=== PATIENT | male | born 1970 | race Caucasian/White ===

== ENCOUNTER → 2016-10-31 | Outpatient (CLI) | payer OTHER ==
[2016-10-31 12:02] LABS: BASO % 0.4 %; BASO ABS # 0.02 K/uL (0-0.2); COMPLETE YES; EOS % 0.8 %; HEMATOCRIT 42.2 % (42-52); LYMPH % 19.8 %; LYMPH ABS # 0.99 K/uL (1.2-3.4); MEAN CELL VOLUME 86.3 fL (80-100); MEAN CORPUSCULAR HEMOGLOBIN 29.7 pg (25-34); MEAN CORPUSCULAR HGB CONC 34.4 g/dl (32-36); MEAN PLATELET VOLUME 10.5 fL (7.4-10.4); MONO % 9.2 %; NEUT % 69.8 %; PLATELET COUNT 231 K/uL (130-400); RED BLOOD COUNT 4.89 M/uL (4.7-6.1); WHITE BLOOD COUNT 5.01 K/uL (4.8-10.8)
[2016-10-31 12:12] LABS: ALT/SGPT 37 U/L (12-78); BLOOD UREA NITROGEN 11 mg/dl (7-18); BUN/CREATININE RATIO 11.2 (10-20); CALCIUM 9.6 mg/dl (8.5-10.1); CARBON DIOXIDE 28 mmol/L (21-32); CHLORIDE 104 mmol/L (98-107); CHOLESTEROL 204 mg/dl (0-200); GLUCOSE 86 mg/dl (70-99); POTASSIUM 4.1 mmol/L (3.5-5.1); SODIUM 141 mmol/L (136-145); TRIGLYCERIDES 57 mg/dl (0-150); VERY LOW DENSITY LIPOPROT CALC 11 mg/dl
[2016-10-31 12:20] LABS: ALB/GLOB RATIO 1.3 (0.9-2); ALKALINE PHOSPHATASE 80 U/L (45-117); AST/SGOT 21 U/L (15-37); CHOLESTEROL/HDL RATIO 3.8; HDL CHOLESTEROL 54 mg/dl; LDL CHOLESTEROL CALCULATED 139 mg/dl; PROSTATE SPECIFIC ANTIGEN 0.618 ng/ml (0.000-4.000)
== END | disposition home or self-care (01) ==
LOC: C.LABBFT 10:23
PROVIDERS: ATTEND Internal Medicine
DX: N40.0 Benign prostatic hyperplasia without lower urinary tract symptoms (principal); R39.11 Hesitancy of micturition; N52.9 Male erectile dysfunction, unspecified; E03.9 Hypothyroidism, unspecified; Z13.6 Encounter for screening for cardiovascular disorders

== ENCOUNTER → 2017-12-17 | Day surgery (SDC) | payer OTHER ==
[2017-12-09 16:43] VITALS: BMI 26.0
[~2017-12-17] VITALS: Ht 177.8 cm; Wt 84.1 kg
[~2017-12-17] MED LIST: ARGI500C PO; ASCO10003 PO; B-CO1CAP3 PO; CYAN1SUB12 PO; GLUC500C4 PO; LIDOCAINE HCL 2% 2 ML VIAL (20MG/ML) ONE; MAGN400T6 PO; MULT-506 PO; MULT-827 PO; NUTR30CA PO; OMEP20TA PO; PROPOFOL IV EMULSION 10 MG/ML 20 ML VIAL ONE; SELE1TAB PO; SODIUM CHLORIDE 0.9% 500ML 500 ML IV ONE; TAMS0.4C38 PO; [UNRECOGNIZED DRUG - CODE] PO; [UNRECOGNIZED DRUG - CODE] PO
[2017-12-17 14:04] VITALS: Ht 177.8 cm; Wt 84.1 kg
--- NOTE | 2017-12-17 14:47 | Endo History and Physical ---
History & Physical Date of Service: December 17, 2017. Chief Complaint: ACID REFLUX Referring Physician: DR LUNA History of Present Illness 47 yo CM who presents for EGD secondary to GERD. Past Surgical History Hx Cardiac Surgery: No Hx Internal Defibrillator: No Hx Pacemaker: No Hx Abdominal Surgery: No Hx of Implantable Prosthesis: No Hx Post-Op Nausea and Vomiting: No Hx Cancer Surgery: No Hx Thoracic Surgery: No Hx Orthopedic: No Hx Urinary Tract Surgery: No Family History None Social History Smoking Status: Never Smoker Hx Substance Use: No Hx Alcohol Use: No Allergies Coded Allergies: No Known Allergies (Unverified , 12/17/17) Current Medications Reported Home Medications Medications Dose Route/Sig Max Daily Dose Days Date Category Selenium 100 Mcg Tab 1 Tab PO DAILY 12/09/17 Reported L-Citrulline (Citrulline (Bulk)) 1 Pow Pow 750 Mg PO DAILY 12/09/17 Reported Vitamin C (Ascorbic Acid) 1,000 Mg Tab 2 Tabs PO DAILY 12/09/17 Reported Glucosamine (Glucosamine Sulfate) 500 Mg Cap 2 Tabs PO DAILY 12/09/17 Reported B Complex (B-Complex Vitamins) 1 Cap Cap 1 Cap PO DAILY 12/09/17 Reported Vitamin D3 Complete (Multiple Vitamins W/ Minerals) 1 Tab Tab 100 Mcg PO DAILY 12/09/17 Reported Vitamin B-12 (Cyanocobalamin) 2,500 Mcg Sub 1 Tab PO DAILY 12/09/17 Reported Flomax (Tamsulosin Hcl) 0.4 Mg Cap 1 Cap PO DAILY 30 12/09/17 Reported Pycnogenol (Nutritional Supplements) 1 Cap Cap 100 Mg PO DAILY 12/09/17 Reported Omeprazole 20 Mg Tab 1 Tab PO DAILY 90 12/09/17 Reported Multivitamin (Multivitamins) Tab 1 Tab PO DAILY 12/09/17 Reported Mag-Ox (Magnesium Oxide) 400 Mg Tab 400 Mg PO DAILY 12/09/17 Reported N-Bnasefwk-280 (Arginine) 500 Mg Cap 6 Tabs PO DAILY 12/09/17 Reported Kelp/Lecithin/B-6 (Deyhfnhuwz-Ymqs-Rizfqzbx-Vineg) 1 Cap Cap 225 Mcg PO DAILY 12/09/17 Reported Vital Signs Weight (Kilograms): 84.09 Height (Feet): 5 Height (Inches): 10 Date Time Temp Pulse Resp B/P (MAP) Pulse Ox O2 Delivery O2 Flow Rate FiO2 12/17/17 14:09 36.8 80 18 126/85 (99) 98 Room Air Physical Exam General Appearance: WD/WN, no apparent distress Respiratory/Chest: Auscultation: breath sounds normal Cardiovascular: Heart Auscultation: RRR Abdomen: Bowel Sounds: normal Inspection & Palpation: soft, non-distended, no tenderness, guarding & rebound Assessment and Plan Assessment: 47 yo CM who presents for EGD secondary to GERD. Plan: Proceed with EGD.
--- NOTE | 2017-12-17 15:13 | GI REPORT ---
Patient Name: North Gutierrez Procedure Date: 12/17/2017 2:50 PM Date of : 1970 Admit Type: Outpatient Age: 47 Gender: Male Attending MD: Romie Hyatt DO Procedure: Upper GI endoscopy Providers: Romie Hyatt DO Referring MD: Jey Ya Indications: Gastro-esophageal reflux disease Medicines: Monitored Anesthesia Care Complications: No immediate complications. Estimated Blood Loss: Estimated blood loss: none. Procedure: Pre-Anesthesia Assessment: - Prior to the procedure, a History and Physical was performed, and patient medications and allergies were reviewed. The patient's tolerance of previous anesthesia was also reviewed. The risks and benefits of the procedure and the sedation options and risks were discussed with the patient. All questions were answered, and informed consent was obtained. Prior Anticoagulants: The patient has taken no previous anticoagulant or antiplatelet agents. ASA Grade Assessment: II - A patient with mild systemic disease. After reviewing the risks and benefits, the patient was deemed in satisfactory condition to undergo the procedure. After obtaining informed consent, the endoscope was passed under direct vision. Throughout the procedure, the patient's blood pressure, pulse, and oxygen saturations were monitored continuously. The On-site loaner was introduced through the mouth, and advanced to the second part of duodenum. The upper GI endoscopy was accomplished without difficulty. The patient tolerated the procedure well. Findings: The esophagus was normal. Localized mild inflammation characterized by erythema was found in the gastric antrum. Biopsies were taken with a cold forceps for histology. The examined duodenum was normal. Impression: - Normal esophagus. - Gastritis. Biopsied. - Normal examined duodenum. Recommendation: - Resume previous diet. - Continue present medications. - Await pathology results. - Return to primary care physician as previously scheduled. Romie Hyatt DO 12/17/2017 3:13:03 PM This report has been signed electronically. Note Initiated On: 12/17/2017 2:50 PM Number of Addenda: 0 I attest to the content of the Intraoperative Record and orders documented therein, exceptions below {[id number]}
--- NOTE | 2017-12-17 15:19 | Discharge Instructions ---
Endoscopy Patient Instructions Date / Procedure(s) Performed December 17, 2017. EGD Allergy Information Coded Allergies: No Known Allergies (Unverified , 12/17/17) Discharge Date / Findings December 17, 2017. Gastritis s/p biopsies Medication Instructions OK to resume all medications today as prescribed Reported Home Medications Medications Dose Route/Sig Max Daily Dose Days Date Category Selenium 100 Mcg Tab 1 Tab PO DAILY 12/09/17 Reported L-Citrulline (Citrulline (Bulk)) 1 Pow Pow 750 Mg PO DAILY 12/09/17 Reported Vitamin C (Ascorbic Acid) 1,000 Mg Tab 2 Tabs PO DAILY 12/09/17 Reported Glucosamine (Glucosamine Sulfate) 500 Mg Cap 2 Tabs PO DAILY 12/09/17 Reported B Complex (B-Complex Vitamins) 1 Cap Cap 1 Cap PO DAILY 12/09/17 Reported Vitamin D3 Complete (Multiple Vitamins W/ Minerals) 1 Tab Tab 100 Mcg PO DAILY 12/09/17 Reported Vitamin B-12 (Cyanocobalamin) 2,500 Mcg Sub 1 Tab PO DAILY 12/09/17 Reported Flomax (Tamsulosin Hcl) 0.4 Mg Cap 1 Cap PO DAILY 30 12/09/17 Reported Pycnogenol (Nutritional Supplements) 1 Cap Cap 100 Mg PO DAILY 12/09/17 Reported Omeprazole 20 Mg Tab 1 Tab PO DAILY 90 12/09/17 Reported Multivitamin (Multivitamins) Tab 1 Tab PO DAILY 12/09/17 Reported Mag-Ox (Magnesium Oxide) 400 Mg Tab 400 Mg PO DAILY 12/09/17 Reported X-Tscpwlfz-461 (Arginine) 500 Mg Cap 6 Tabs PO DAILY 12/09/17 Reported Kelp/Lecithin/B-6 (Lkllxzobqx-Sukz-Lidbifvd-Vineg) 1 Cap Cap 225 Mcg PO DAILY 12/09/17 Reported Provider Instructions Activity Restrictions - No exercising or heavy lifting for 24 hours. - Do not drink alcohol the day of the procedure. - Do not drive a car or operate machinery until the day after the procedure. - Do not make any important decisions or sign important papers in 24 hours after the procedure. Following Day: - Return to full activity which may include returning to work/school. Diet Start your diet with liquids and light foods (jello, soup, juice, toast). Then eat your usual diet if not nauseated. Treatment For Common After Affects For mild abdominal pain, bloating, or excessive gas: - Rest - Eat lightly - Lie on right side Follow-Up Information Follow-up with DR LUNA as scheduled Anesthesia Information What You Should Know You have had a procedure that required some medicine to reduce anxiety and discomfort. This treatment is called moderate sedation. After receiving the treatment, you may be sleepy, but you will be able to breathe on your own. The effects of the treatment may last for several hours. Follow these instructions along with Activity/Diet recommendations noted above: * Do NOT do anything where dizziness or clumsiness would be dangerous. * Rest quietly at home today, then you can be up and about tomorrow. * Have a responsible person stay with you the rest of today. * You may have had an I.V. today. If so, you may take the dressing off later today. Recommendations Call your doctor if: * Trouble breathing * Continuous vomiting for more than 24 hours * Temperature above 101 degrees * Severe abdominal pain or bloating * Pain not relieved by pain medicine ordered * There is increased drainage or redness from any incision * A large amount of rectal bleeding greater than 2-3 tablespoons. (If you had a polyp/s removed or have hemorrhoids, a small amount of blood - from the rectum is to be expected.) * You have any unanswered questions or concerns. IN THE EVENT OF A SERIOUS EMERGENCY, GO TO THE NEAREST EMERGENCY ROOM Your discharge instructions were prepared by provider Romie Hyatt. Patient Instructions Signature Page [facility] Gutierrez Patient (or Guardian) Signature/Date: I have read and understand the instructions given to me by my caregivers. Caregiver/RN/Doctor Signature/Date: The above-named patient and/or guardian has received patient instructions on this date. + Original Patient Signature Page (only) stays with chart. Please make copy for patient.
--- NOTE | 2017-12-17 15:28 | Anesthesiology Progress Note ---
Anesthesia Post Op Note Date & Time December 17, 2017 at 15:27 Vital Signs Pain Intensity: 0 Vital Signs Past 12 Hours Date Time Temp Pulse Resp B/P (MAP) Pulse Ox O2 Delivery O2 Flow Rate FiO2 12/17/17 15:08 36.3 86 16 120/62 (81) 96 Room Air 12/17/17 14:09 36.8 80 18 126/85 (99) 98 Room Air Notes Mental Status: alert / awake / arousable, participated in evaluation Pt Amnestic to Procedure: Yes Nausea / Vomiting: adequately controlled Pain: adequately controlled Airway Patency, RR, SpO2: stable & adequate BP & HR: stable & adequate Hydration State: stable & adequate Anesthetic Complications: no major complications apparent
[2017-12-17 15:48] VITALS: BP 134/78; PULSE 84; O2SAT 96
== END | disposition home or self-care (01) ==
LOC: C.GI 13:47
PROVIDERS: ATTEND Internal Medicine
DX: K21.9 Gastro-esophageal reflux disease without esophagitis (principal); K29.50 Unspecified chronic gastritis without bleeding; N40.0 Benign prostatic hyperplasia without lower urinary tract symptoms